=== PATIENT | female | born 1980 | race African-American/Black ===

== ENCOUNTER 2017-09-29 12:04 | Emergency (ER) | payer OTHER ==
[2017-09-29 12:09] VITALS: BP 140/77; TEMP 98; BMI 28.1
--- NOTE | 2017-09-29 12:54 | PDOC ---
History of Present Illness - General Chief Complaint: Injury Stated Complaint: LT SHOULDER INJURY Time Seen by Provider: 09/29/17 12:43 - History of Present Illness Initial Comments: 37-year-old female with past medical history significant for HIV on antiretrovirals therapy presents for evaluation of atraumatic left shoulder pain 2 days. She describes her pain as sharp exacerbated with motion relieved with rest and free of radiation. 09/29/17 12:51 Past History - Past Medical History Allergies/Adverse Reactions: Allergies Allergy/AdvReac Type Severity Reaction Status Date / Time No Known Allergies Allergy Verified 09/29/17 12:05 Home Medications: Ambulatory Orders Elviteg/Cob/Emtri/Tenof Alafen [Genvoya Tablet] 1 each PO DAILY 09/29/17 Ibuprofen [Motrin -] 600 mg PO TID #30 tablet 09/29/17 COPD: No Diabetes: No (HX OF) HTN: Yes (HX OF) - Surgical History Abdominal Surgery: Yes (GASTRIC SLEEVE) - Suicide/Smoking/Psychosocial Hx Smoking History: Current every day smoker Have you smoked in the past 12 months: Yes Number of Cigarettes Smoked Daily: 6 Information on smoking cessation initiated: Yes 'Breaking Loose' booklet given: 09/29/17 Hx Alcohol Use: No Drug/Substance Use Hx: No Substance Use Type: Alcohol Review of Systems - Review of Systems Musculoskeletal: Yes: See HPI, Joint Pain All Other Systems: Reviewed and Negative *Physical Exam - Vital Signs Last Vital Signs Temp Pulse Resp BP Pulse Ox 98.0 F 140/77 09/29/17 12:05 09/29/17 12:05 - Physical Exam Comments: Left shoulder skin color and temperature are normal. She has no tenderness. She has decreased range of motion and external rotation and abduction. Full internal rotation and abduction. She has 3 out of 5 super spinatus isolation strength 5 out of 5 in all other complaints. Positive impingement maneuvers and a negative Spurling maneuver. She has no gross sensorimotor deficits upper extremity compartments are soft and nontender and she's neurovascularly intact. 09/29/17 12:52 Medical Decision Making - Medical Decision Making Is most likely impingement syndrome or rotator cuff tear I will have her follow- up with orthopedics 09/29/17 12:52 *DC/Admit/Observation/Transfer Diagnosis at time of Disposition: Shoulder impingement syndrome - Discharge Dispostion Disposition: HOME Condition at time of disposition: Stable Decision to Admit order: No - Referrals Referrals: Carrol Son MD, MD [Primary Care Provider] - Magno Hdz MD [Staff Physician] - - Patient Instructions Printed Discharge Instructions: Shoulder Tendinopathy Additional Instructions: Return to the ER should her symptoms worsen or go unresolved. Please follow-up with orthopedics in the next 2-3 days for further evaluation and treatment options. Please take the Motrin as needed with food if it bothers her stomach please stop. Please remember to do the exercises we spoke about 3 times a day - Post Discharge Activity
== END 2017-09-29 13:14 | disposition home or self-care (01) ==
LOC: JERFT 12:04
DX: M75.42 Impingement syndrome of left shoulder (principal); I10 Essential (primary) hypertension; Z21 Asymptomatic human immunodeficiency virus [HIV] infection status
CPT/HCPCS: 99281-25

== ENCOUNTER 2019-03-15 14:30 | Emergency (ER) | payer OTHER ==
--- NOTE | 2019-03-15 14:51 | PDOC ---
Rapid Medical Evaluation Time Seen by Provider: 03/15/19 14:46 Medical Evaluation: Allergies Allergy/AdvReac Type Severity Reaction Status Date / Time No Known Allergies Allergy Verified 09/29/17 12:05 03/15/19 14:46 Pt presents to the ED with pain to her buttocks. She states that there is a "crack" that is not healing. Denies bleeding. She has been trying A&D ointment with little relief. Pt HIV positive on antiretrovirals Exam: AAOx3, ambulatory. Rectal exam deferred to provider Orders: Nothing Pt to proceed to the ER for further evaluation Discharge Disposition - Diagnosis Buttock pain - Referrals - Patient Instructions - Post Discharge Activity
[2019-03-15 14:52] VITALS: BP 155/90; PULSE 86; TEMP 36.8; BMI 34.4
--- NOTE | 2019-03-15 17:13 | PDOC ---
History of Present Illness - General Chief Complaint: Pain Stated Complaint: SICK Time Seen by Provider: 03/15/19 14:46 History Source: Patient Exam Limitations: No Limitations - History of Present Illness Initial Comments: 03/15/19 19:57 38 year old female with no significant medical or surgical history presents with reports of splitting in crack of buttocks x 2 months. 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 States using zinc oxide topical cream but area is not healing. Timing/Duration: reports: constant (for 2 months) Severity: Yes: mild Location: reports: genitalia Respiratory Risk Factors: reports: no cause identified Modifying Factors: worse with: antihistamine Associated Symptoms: denies: denies symptoms Past History - Travel Traveled outside of the country in the last 30 days: No Close contact w/someone who was outside of country & ill: No - Past Medical History Allergies/Adverse Reactions: Allergies Allergy/AdvReac Type Severity Reaction Status Date / Time No Known Allergies Allergy Verified 09/29/17 12:05 Home Medications: Ambulatory Orders Elviteg/Cob/Emtri/Tenof Alafen [Genvoya Tablet] 1 each PO DAILY 09/29/17 Bacitracin - [Bacitracin Topical Ointment -] 1 applic TP BID #1 tube 03/15/19 Clotrimazole 15 gm TP BID #1 tube 03/15/19 COPD: No Diabetes: No (HX OF) HTN: Yes (HX OF) - Surgical History Abdominal Surgery: Yes (GASTRIC SLEEVE) - Psycho Social/Smoking Cessation Hx Smoking History: Current some day smoker Have you smoked in the past 12 months: Yes Number of Cigarettes Smoked Daily: 6 Information on smoking cessation initiated: No 'Breaking Loose' booklet given: 09/29/17 Hx Alcohol Use: Yes (SOCIAL) Drug/Substance Use Hx: No Substance Use Type: Alcohol Review of Systems - Review of Systems Able to Perform ROS?: Yes Is the patient limited Bengali proficient: No Constitutional: No: Chills, Fever HEENTM: No: Nose Congestion, Throat Swelling, Difficulty Swallowing Respiratory: No: Orthopnea, Wheezing Cardiac (ROS): No: Lightheadedness : Yes: Other (split in between buttocks). No: Dysuria, Discharge, Urgency, Testicular Swelling Musculoskeletal: No: Back Pain, Gout, Joint Pain, Muscle Weakness Neurological: No: Numbness, Paresthesia *Physical Exam - Vital Signs Last Vital Signs Temp Pulse Resp BP Pulse Ox 36.8 F L 86 20 155/90 99 03/15/19 14:47 03/15/19 14:47 03/15/19 14:47 03/15/19 14:47 03/15/19 14:47 - Physical Exam General Appearance: Yes: Nourished, Appropriately Dressed HEENT: positive: GRANT, TMs Normal, Pharynx Normal Neck: positive: Supple. negative: Lymphadenopathy (R), Lymphadenopathy (L) Respiratory/Chest: positive: Lungs Clear Cardiovascular: positive: Regular Rate, S1, S2 Female Pelvic Exam: positive: other (darkening of skin in between buttocks, open areas in the crack between buttocks) Extremity: positive: Normal Capillary Refill Medical Decision Making - Medical Decision Making 03/15/19 20:01 38 year old female with no significant medical or surgical history presents with reports of splitting in crack of buttocks x 2 months. 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 States using zinc oxide topical cream but area is not healing. appears fungal in nature tiinea cruris/ iguinal rx: clotrimazole and bacitracin Discharge - Discharge Information Problems reviewed: Yes Clinical Impression/Diagnosis: Buttock pain, Tinea inguinalis Condition: Good Disposition: HOME - Admission No - Additional Discharge Information Prescriptions: Bacitracin - [Bacitracin Topical Ointment -] 1 applic TP BID #1 tube Clotrimazole 15 gm TP BID #1 tube - Follow up/Referral Referrals: Ramo Rodriguez [Primary Care Provider] - (call for appointment ) - Patient Discharge Instructions Patient Printed Discharge Instructions: Tinea Cruris: AKA Jock Itch Additional Instructions: Wash area gently with mild soap and water Apply both creams together twice daily follow up with primary physician - Post Discharge Activity Work/Back to School Note: Back to Work
== END 2019-03-15 17:21 | disposition home or self-care (01) ==
LOC: JERFT 14:30
DX: B35.6 Tinea cruris (principal); Z21 Asymptomatic human immunodeficiency virus [HIV] infection status; Z86.79 Personal history of other diseases of the circulatory system; Z86.39 Personal history of other endocrine, nutritional and metabolic disease; Z98.84 Bariatric surgery status
CPT/HCPCS: 36415; 87070; 87186; 87205; 87255; 99282-25

== ENCOUNTER 2019-05-20 03:39 | Emergency (ER) | payer OTHER ==
--- NOTE | 2019-05-20 05:20 | PDOC ---
Attending Attestation - Resident Resident Name: Андрей Vargas - ED Attending Attestation I have performed the following: I have examined & evaluated the patient, The case was reviewed & discussed with the resident, I agree w/resident's findings & plan - HPI HPI: 05/22/19 21:02 see resident hpi - Physicial Exam PE: 05/22/19 21:03 see resident exam - Medical Decision Making 05/22/19 21:03 38-year-old female with itching to the perineal region Exam consistent with fungal exam and likely BV Will treat accordingly Of note patient refused test stating she has not been active in a year and does not need it
[2019-05-20 06:31] VITALS: BMI 36.8
--- NOTE | 2019-05-20 06:52 | PDOC ---
History of Present Illness - General Chief Complaint: Vaginal Sxs Stated Complaint: ANAL AND VAGINAL IRRITATION,HEADACHE Time Seen by Provider: 05/20/19 05:19 History Source: Patient Exam Limitations: No Limitations - History of Present Illness Initial Comments: 38 yo F with a hx of DM and HIV (undetectable levels per the patient) presents to the emergency department with irritation of the anus and vaginal region for the past few days. Per the patient, she has had a known rash at the pilonidal region for over a year with her last presentation for the rash last year in the department. Concurrently, the patient noted having foul odor discharge consistent with her previous BV infection she had "years ago". Denies the following: lower abdominal pain, dysuria, hematuria, diarrhea, hematochezia, and melena. Endorses vaginal bleeding a few days ago consistent with her menstrual cycle (normally 1x per month; denies hormone contraceptive or IUD). The patient denies current sexual activity. Denies a hx of PID. Denies the following: fevers, chills, SOB, chest pain, nausea, vomiting, back pain, and leg pain/swelling. Allergies: NKDA Past History - Past Medical History Allergies/Adverse Reactions: Allergies Allergy/AdvReac Type Severity Reaction Status Date / Time No Known Allergies Allergy Verified 05/20/19 05:28 Home Medications: Ambulatory Orders Clotrimazole 1 applic TP BID 28 Days #1 bottle 05/20/19 Metronidazole 500 mg PO BID #14 tablet 05/20/19 COPD: No Diabetes: No (HX OF) HTN: Yes (HX OF) - Surgical History Abdominal Surgery: Yes (GASTRIC SLEEVE) - Psycho Social/Smoking Cessation Hx Smoking History: Current every day smoker Have you smoked in the past 12 months: Yes Number of Cigarettes Smoked Daily: 4 Information on smoking cessation initiated: No 'Breaking Loose' booklet given: 09/29/17 Hx Alcohol Use: No Drug/Substance Use Hx: No Substance Use Type: Alcohol Review of Systems - Review of Systems Able to Perform ROS?: Yes Is the patient limited Cape Verdean proficient: No Constitutional: No: Chills, Diaphoresis, Fever, Weakness HEENTM: No: Eye Pain, Double Vision, Ear Pain, Nose Pain, Throat Pain, Mouth Pain Respiratory: No: Cough, Shortness of Breath, Hemoptysis Cardiac (ROS): No: Chest Pain, Lightheadedness, Palpitations, Chest Tightness ABD/GI: No: Constipated, Diarrhea, Nausea, Rectal Bleeding, Vomiting, Tarry Stools : Yes: Lesions (at the pilonidal region), Other (vaginal discharge; ). No: Burning, Dysuria, Hematuria Musculoskeletal: No: Back Pain, Joint Pain, Neck Pain Integumentary: No: Bruising, Erythema, Rash Neurological: No: Headache, Numbness, Tingling, Tremors Psychiatric: No: Change in Appetite Endocrine: No: Unexplained Weight Loss Hematologic/Lymphatic: No: Anemia *Physical Exam - Vital Signs Last Vital Signs Temp Pulse Resp BP Pulse Ox 98.3 F 81 17 130/74 100 05/20/19 06:37 05/20/19 06:37 05/20/19 06:37 05/20/19 06:37 05/20/19 06:37 - Physical Exam General Appearance: Yes: Nourished, Appropriately Dressed. No: Apparent Distress, Intoxicated HEENT: positive: EOMI, GRANT, Normal Voice, Symmetrical, Pharynx Normal, Hearing Grossly Normal. negative: Pale Conjunctivae, Scleral Icterus (R), Scleral Icterus (L), Muffled/Hoarse voice, Pharyngeal Erythema, Tonsillar Exudate, Tonsillar Erythema, Nasal Congestion, Rhinorrhea, Excessive drooling Neck: positive: Trachea midline, Supple. negative: Tender, Lymphadenopathy (R) , Lymphadenopathy (L), Tender lateral, Tender midline Respiratory/Chest: positive: Lungs Clear, Normal Breath Sounds. negative: Chest Tender, Respiratory Distress, Accessory Muscle Use, Crackles, Rales, Rhonchi, Stridor, Wheezing Cardiovascular: positive: Regular Rhythm, Regular Rate, S1, S2. negative: Systolic Murmur Female Pelvic Exam: positive: cervical os closed, discharge (discharge noted with a fishy odor consistency. Discharge is homogenic in consistency. No vaginal blood noted. No lesions noted on the labial majora/minora and vaginal canal.), other (shane noted within the vaginal wall). negative: CMT, adnexal tenderness, vaginal bleeding Gastrointestinal/Abdominal: positive: Normal Bowel Sounds, Flat, Soft. negative : Tender, Distended, Guarding, Tenderness, Hernia Rectal Exam: positive: other (break in skin noted at the pilonidal cyst extending inferiorly by 3 cm. no rectum involvement. no purulent discharge. surrounding erythema with scaly appearance) Lymphatic: negative: Adenopathy Musculoskeletal: positive: Normal Inspection. negative: CVA Tenderness, Vertebral Tenderness Extremity: positive: Normal Capillary Refill, Normal Inspection, Normal Range of Motion. negative: Tender Integumentary: positive: Normal Color, Dry, Warm. negative: Swelling, Ecchymosis Neurologic: positive: Fully Oriented, Alert, Normal Mood/Affect, Motor Strength 5/5 Medical Decision Making - Medical Decision Making 38 yo F with no past medical history presents to the emergency department with irritation of the anus and vaginal region for the past few days. Per the patient , she has had a known rash at the pilonidal region for over a year with her last presentation for the rash last year in the department. Initial vitals: Initial Vital Signs Temp Pulse Resp BP Pulse Ox 97.8 F 86 19 135/83 100 05/20/19 03:40 05/20/19 03:40 05/20/19 03:40 05/20/19 03:40 05/20/19 03:40 Work up: patient presents to the emergency department with multitude of complaints vaginal: physical examination consistent with BV given that the patient has pruitus and discharge consistent with BV. Patient denied to have test because they state they do not believe they are due to abstinence for a significant period of time prior to presentation and that she recently had her menstrual cycle. Also concurrent candidiasis infection noted anus: patient has a lesion consistent with tinea with breakage of the skin without immediate erythema or purulent discharge within the breakage. Likely the patient is having a tinea infection given the erythema with scaly appearance surrounding it. 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 The patient was given a prescription of metronidazole and anti-fingal cream for the tinea on the gluteus. Discharge - Discharge Information Problems reviewed: Yes Clinical Impression/Diagnosis: Bacterial vaginosis Condition: Fair Disposition: HOME - Admission No - Additional Discharge Information Prescriptions: Clotrimazole 1 applic TP BID 28 Days #1 bottle Metronidazole 500 mg PO BID #14 tablet - Follow up/Referral Referrals: [facility] [Provider Group] - Patient Discharge Instructions Patient Printed Discharge Instructions: DI for Vaginal Yeast Infection, DI for Bacterial Vaginosis Additional Instructions: You were seen in the emergency department for the evaluation of your infection. Please take the antibiotics as prescribed. Please return if you have worsening. Thank you. - Post Discharge Activity Work/Back to School Note: Back to Work
[2019-05-20] MEDS ORDERED: FLUCONAZOLE 150 MG TABLET PO ONE ×2 (06:54→06:55)
[2019-05-20 07:34] VITALS: BP 134/76; PULSE 80; TEMP 98
== END 2019-05-20 07:30 | disposition home or self-care (01) ==
LOC: JER 03:39
DX: B37.3 Candidiasis of vulva and vagina (principal); N76.0 Acute vaginitis; B96.89 Other specified bacterial agents as the cause of diseases classified elsewhere; Z86.79 Personal history of other diseases of the circulatory system; Z86.39 Personal history of other endocrine, nutritional and metabolic disease
CPT/HCPCS: 99283-25